=== PATIENT | male | born 1940 | race Caucasian/White ===

== ENCOUNTER 2017-06-27 16:37 | Inpatient (IN) | payer OTHER ==
--- NOTE | 2017-06-27 16:49 | EDPHY ---
H & P Time Seen by Provider: 06/27/17 16:48 HPI/ROS: Chief complaint. Chest pain HPI. 76-year-old male with history of coronary artery disease and stents presents with an episode of chest discomfort last night that lasted about 2 hr. He has a history of GERD so he did take Tums but the pain gradually faded out. He got up and went to the gym this morning and did his usual work out. He had no discomfort during the workout. Then this afternoon while driving he had again left anterior chest discomfort beginning about 3:30 p.m.. There was radiation to the right shoulder right elbow. It is described as dull. No shortness of breath. He has lightheaded. Continues to have 1/10 chest discomfort. He did take extra aspirin today. He is not sick and denies fever cough. No unusual leg pain or swelling. He had coronary artery disease with 3 stents in January 2004. ROS Constitutional. no fever/chills, no weakness Eyes. no problems with vision ENT. no sore throat, no nasal drainage Cardiovascular. Chest discomfort Respiratory. no shortness of breath, no cough Abdominal. no abdominal pain, no nausea/vomiting, no diarrhea . no problems urinating MS. no calf pain/swelling, no neck/back pain, no joint pain Skin. no rash Lymph. no swollen glands Neuro. no headache, no dizziness, no difficulty walking or with speech Past Medical/Surgical History: Coronary artery disease with stents, dyslipidemia, hypertension, GERD Social History: Single, nonsmoker, no alcohol Smoking Status: Former smoker Physical Exam: General Appearance: Alert well-developed male mild distress vital signs are stable Eyes: Pupils equal and round no pallor or injection. ENT, Mouth: Mucous membranes are moist. Respiratory: There are no retractions, lungs are clear to auscultation. Cardiovascular: Regular rate and rhythm. Gastrointestinal: Abdomen is soft and nontender, no masses, bowel sounds normal. Neurological: Awake and alert, sensory and motor exams grossly normal. Skin: Warm and dry, no rashes. Musculoskeletal: Neck is supple nontender. Extremities symmetrical, full range of motion. Psychiatric: Patient is oriented X 3, there is no agitation. Constitutional: Initial Vital Signs Temperature (C) 36.8 C 06/27/17 16:44 Heart Rate 71 06/27/17 16:44 Respiratory Rate 16 06/27/17 16:44 Blood Pressure 161/90 H 06/27/17 16:44 O2 Sat (%) 97 06/27/17 16:44 O2 Delivery Mode Room Air Allergies/Adverse Reactions: No Known Allergies Allergy (Unverified 06/27/17 16:42) Home Medications: Medication Instructions Recorded Aspirin EC [Aspirin EC 81 mg (*)] 81 mg PO DAILY 06/27/17 Atorvastatin Calcium [Lipitor 40 40 mg PO DAILY 06/27/17 mg (*)] Metoprolol Succinate Xr [Toprol Xl 50 mg PO DAILY 06/27/17 50 mg (*)] Omeprazole 40 mg PO DAILY 06/27/17 Triamcinolone 0.025% 06/27/17 Medical Decision Making - Diagnostics EKG Interpretation: EKG interpreted by me shows normal sinus rhythm with normal interval. Left axis deviation. QRS is normal there is no significant ST elevation or depression. T-wave flattening in the inferior leads. Imaging Results: Imaging Impressions Chest X-Ray 06/27/17 17:15 Impression: Negative. One-view chest x-ray interpreted by me as nonacute Procedures: IV normal saline, monitor ED Course/Re-evaluation: I consulted and discussed case with Dr. Adorno I will from cardiology who will see the patient in consultation. He agrees with Current management I consulted discussed case with Dr. Arceo, hospitalist who agrees to the admission Patient and I discussed laboratory imaging EKG results. We discussed treatment plan including recommendation for admission for further evaluation. He expresses understanding and agreement Differential Diagnosis: Chest pain in a man with known coronary artery disease and stents. I am concerned about unstable angina in reocclusion of his stents. His EKG shows inferior T-wave flattening but is otherwise nonacute his troponin is normal. Plan is admission and heart catheterization - Data Points Laboratory Results: Laboratory Results 06/27/17 17:18 06/27/17 17:18 06/27/17 06/27/17 17:18 17:18 WBC 6.36 10^3/uL 10^3/uL (3.80-9.50) RBC 4.50 10^6/uL 10^6/uL (4.40-6.38) Hgb 14.7 g/dL g/dL (13.7-17.5) Hct 45.0 % % (40.0-51.0) MCV 100.0 fL H fL (81.5-99.8) MCH 32.7 pg pg (27.9-34.1) MCHC 32.7 g/dL g/dL (32.4-36.7) RDW 13.2 % % (11.5-15.2) Plt Count 162 10^3/uL 10^3/uL (150-400) MPV 11.4 fL fL (8.7-11.7) Neut % (Auto) 66.7 % % (39.3-74.2) Lymph % (Auto) 18.9 % % (15.0-45.0) Coal % (Auto) 10.4 % % (4.5-13.0) Eos % (Auto) 3.0 % % (0.6-7.6) Baso % (Auto) 0.8 % % (0.3-1.7) Nucleat RBC Rel Count 0.0 % % (0.0-0.2) Absolute Neuts (auto) 4.25 10^3/uL 10^3/uL (1.70-6.50) Absolute Lymphs (auto) 1.20 10^3/uL 10^3/uL (1.00-3.00) Absolute Monos (auto) 0.66 10^3/uL 10^3/uL (0.30-0.80) Absolute Eos (auto) 0.19 10^3/uL 10^3/uL (0.03-0.40) Absolute Basos (auto) 0.05 10^3/uL 10^3/uL (0.02-0.10) Absolute Nucleated RBC 0.00 10^3/uL 10^3/uL (0-0.01) Immature Gran % 0.2 % % (0.0-1.1) Immature Gran # 0.01 10^3/uL 10^3/uL (0.00-0.10) Sodium 141 mEq/L mEq/L (135-145) Potassium 4.3 mEq/L mEq/L (3.5-5.2) Chloride 103 mEq/L mEq/L (97-110) Carbon Dioxide 29 mEq/l mEq/l (22-31) Anion Gap 9 mEq/L mEq/L (8-16) BUN 17 mg/dL mg/dL (7-23) Creatinine 0.9 mg/dL mg/dL (0.7-1.3) Estimated GFR > 60 Glucose 76 mg/dL mg/dL (70-100) Calcium 9.4 mg/dL mg/dL (8.5-10.4) Troponin I < 0.012 ng/mL ng/mL (0.000-0.034) NT-Pro-B Natriuret Pep 248 pg/mL pg/mL (0-450) Lipase 60 IU/L IU/L (23-300) Departure - Departure Disposition: [facility] Inpatient Acute Clinical Impression: Chest pain Qualifiers: Chest pain type: unspecified Qualified Code(s): R07.9 - Chest pain, unspecified Condition: Good Referrals: Patient,NotPresent [Unknown] - As per Instructions
--- NOTE | 2017-06-27 17:20 | CPEKG ---
Heart Rate: 63 RR Interval: 952 P-R Interval: 204 QRSD Interval: 82 QT Interval: 408 QTC Interval: 418 P [place]: -8 QRS [place]: -18 T Wave [place]: 9 EKG Severity - BORDERLINE ECG - EKG Impression: SINUS RHYTHM EKG Impression: BORDERLINE LEFT AXIS DEVIATION EKG Impression: BORDERLINE T ABNORMALITIES, INFERIOR LEADS Electronically Signed By: Daniele Matthew 27-Jun-2017 23:55:00
[2017-06-27 17:30] LABS: PLATELET COUNT 162 10^3/uL (150-400)
[2017-06-27] MEDS ORDERED: ONDANSETRON 4 MG/2 ML VIAL IVP PRN (19:55)
[2017-06-27] MEDS ORDERED: ONDANSETRON DISINTEGRATING 4 MG TAB PO PRN (19:55)
[2017-06-27] MEDS ORDERED: ACETAMINOPHEN 325 MG TAB PO PRN (19:55)
--- NOTE | 2017-06-27 20:51 | GHP ---
[f rep st] HISTORY AND PHYSICAL DATE OF ADMISSION: 06/27/2017 CHIEF COMPLAINT: Chest pain. HISTORY OF PRESENT ILLNESS: The patient is a 76-year-old man with a history significant for heart di sease. He had 3 stents placed in 2003. Additionally, he has dyslipidemia and hypertension. He come s in after noting some chest pain Tuesday night in bed. He initially woke up because he had to urinat e and then he noted the chest pain on the left side of his chest. He thought it was reflux, so took a couple Tums and felt it ease and went back to sleep. He got up this morning and worked out in his club. He thought he may have had a little bit of elbow discomfort during the workout, but it was min imal and resolved soon after. He then went to play bridge and sometime during the mid day, he noted some right shoulder and arm discomfort again that he attributed to some bursitis. After going to the office for elections to sign up, he was driving home and he noted the chest pain on his left side ca me back and this time it was associated with right arm pain, so he drove to Urgent Care, who promptly sent him over to the ER for further evaluation and treatment. Currently his pain is improved. He d enies any shortness of breath, diaphoresis, or any other associated symptoms. He has had no fevers, chills, weight changes. He denies any abdominal complaints currently. No nausea, vomiting, diarrhea . He does have urinary frequency with at least nocturia x3. No leg pain or calf pain. REVIEW OF SYSTEMS: A 10-point review of systems was done, was negative except as stated in HPI. PAST MEDICAL HISTORY: 1. BPH. 2. Heart disease, status post stents. 3. Dyslipidemia. 4. Hypertension. 5. Obstructive sleep apnea. 6. Esophageal reflux. MEDICATIONS: Include aspirin, atorvastatin, metoprolol, omeprazole, and ProAir. Please see med rec for full details. ALLERGIES: No known drug allergies. SOCIAL HISTORY: He is . He works as a financial advisor trainee. He quit smoking and drinks 1-2 dr inks per day. FAMILY HISTORY: Parents are . PHYSICAL EXAM: VITAL SIGNS: Afebrile, heart rate 68, blood pressure 150/83, respirations 16, he is 96% on room air. GENERAL: He is a very pleasant 76-year-old. He is in no distress. He is alert an d oriented. HEENT: Pupils equal. Extraocular movements intact. Mucous membranes moist. Oropharynx clear. NECK: Supple. No adenopathy. No carotid bruits. HEART: Regular rate and rhythm. No mur mur, gallop, or rub. LUNGS: Clear to auscultation. No wheeze, rhonchi, or rales. ABDOMEN: Soft. No masses. Normal bowel sounds. EXTREMITIES: No clubbing, cyanosis, or edema. MUSCULOSKELETAL: No joint deformities. SKIN: Intact, no rash. NEUROLOGIC: He moves all 4 extremities. Speech is f luent. He is alert and oriented. PSYCH: He has a normal mood. LABORATORY DATA: CBC is within normal limits. Chemistries and electrolytes are normal. The initial troponin is negative. DIAGNOSTICS: Electrocardiogram shows sinus rhythm with some borderline T-wave flattening in III and aVF with a Q-wave in III. No acute ischemia noted. It is personally reviewed and interpreted. Ches t x-ray personally reviewed and interpreted shows no acute disease. ASSESSMENT AND PLAN: 1. 76-year-old with a history of heart disease, remote stents in 2003, presents with chest pain. Th is is nonexertional in nature, but similar to his anginal pain he had prior to the stents. This was discussed with Dr. Adams, who talked with Dr. Steinberg, who plans on doing an angiogram in the morning g iven his previous stent history. Plan will be to admit him for observation. Continue to keep him pa in-free. Will send serial troponins and repeat an EKG in the morning. Will keep him nothing by mout h after midnight and have Cardiology see him and decide on further evaluation at that time. 2. Hypertension, slightly elevated. Will continue to monitor and treat as needed. 3. Dyslipidemia. Continue statin. 4. Benign prostatic hypertrophy. Monitor. /[id number]/MODL
[2017-06-27] MEDS: amLODIPine BESYLATE 5 MG TAB PO SCH (22:10)
--- NOTE | 2017-06-27 23:32 | GCON ---
[f rep st] CONSULTATION CARDIOLOGY CONSULTATION DATE OF CONSULTATION: 06/27/2017 REASON FOR CONSULTATION: Chest pain. REQUESTING PHYSICIAN: Dr. Matthew from [facility] Emergency Department. HISTORY OF PRESENT ILLNESS: The patient is a pleasant 76-year-old gentleman with a known history of coronary artery disease with history of PCI to the right coronary artery in 2003 performed in [place], [place]; hypertension; hyperlipidemia; and a history of acid reflux; who was in his usual state of he alth until approximately 11 p.m. last night when he developed onset of left-sided, dull chest discomf ort which he described as 1/10 and at highest 4/10 discomfort that was associated with right shoulder and right elbow pain. He states he took 2 Tums and gradually felt better. He states when he woke i n the morning, he had minimal pain of around 1/10. He was able to go to the gym and perform his regu lar exercise routine of weightlifting and life cycle for 15 minutes. He denied any associated exerti onal chest pain, chest pressure, shortness of breath or dyspnea. No associated nausea, vomiting, or diaphoresis. He denies any associated exertional intolerance or fatigue. He states he is able to pe rform his work out per his usual routine. He exercises at the gym between 4 and 5 days a week. He does state that symptoms that he had experienced last evening were similar to those prior to his s tent to the right coronary artery. He states that this afternoon, he was driving home at around 3:30 when again, he developed left-sided dull chest discomfort up to 4/10, lasting for up to an hour and resolving spontaneously with right s houlder and right elbow pain. This prompted him to seek medical attention at the [facility], who called EMS and brought him to [facility] for further evaluation. In the emergenc y room, he was found to be hypertensive with systolic blood pressure of 172/91, heart rate of 65, res piratory rate of 18, oxygen saturation 100% on room air. ECG demonstrated sinus rhythm. Initial tro ponin was negative. He did not receive nitroglycerin. He had ongoing 1/10 chest discomfort. Currently, at the time of my exam, he is resting comfortably. He appears in no distress. He does describe a 0.5/10 left-sided chest discomfort. PAST MEDICAL HISTORY: 1. Coronary artery disease with PCI to the RCA in 2003 in [place]. 2. Hypertension. 3. Hyperlipidemia. 4. GERD. 5. Obstructive sleep apnea. MEDICATIONS ON ADMISSION: Toprol-XL 50 mg once daily, atorvastatin 40 mg daily and aspirin 81 mg tomas ly. ALLERGIES: To medications, none. SOCIAL HISTORY: He is . He lives alone. He is a former smoker, smoked for approximately 31 years. He is retired. He exercises 4 to 5 times per week. PHYSICAL EXAMINATION: VITAL SIGNS: As stated above. GENERAL: He is awake, alert, oriented, appropriate. No apparent distress. He is pleasant. NECK: There is no evidence of JVP or carotid bruits. LUNGS: Clear to auscultation bilaterally. CARDIAC: S1, S2. Regular rate and rhythm. No murmurs, rubs, or gallops. His PMI is not displaced. ABDOMEN: Soft, nontender, nondistended. There are normoactive bowel sounds bowel sounds. EXTREMITIES: There is no evidence of cyanosis, clubbing or edema. DATA: White blood cell count is 6.36, hemoglobin of 14.7, hematocrit 45, and platelets 102. Sodium 141, potassium 4.3, chloride 103, bicarb 29, BUN 17, creatinine 0.9, glucose 76. Troponin less than 0.012. BNP 248. Lipase is normal at 60. Chest x-ray demonstrates no evidence of pneumonia. No cardiomegaly. Chest x-ray is unremarkable. ECG today from 1643 demonstrates normal sinus rhythm with normal intervals. Left axis deviation. No rmal R-wave progression. Normal QT interval. Flattening of T-waves in the inferior leads. Previous ECG from September 10, 2016, is essentially unchanged compared to today's study. IMPRESSION: 1. Atypical chest discomfort with radiation to the right shoulder and elbow. 2. May represent anginal equivalent as these are similar symptoms to those prior to his percutaneous coronary intervention in 2003. 3. History of coronary artery disease. 4. Hypertension. 5. Hyperlipidemia. 6. Gastroesophageal reflux disease. 7. Obstructive sleep apnea. SUMMARY: The patient is a pleasant 76-year-old gentleman with known coronary artery disease who pres ents with almost 24 hours of intermittent, nonexertional, left-sided 4/10, dull chest discomfort with no exacerbating or alleviating factors, with radiation to the right shoulder and elbow; which are si milar to those symptoms prior to his PCI in 2003. His initial workup was unremarkable. His ECG is u nchanged compared to study in September of 2016. Troponin is negative. He is currently resting comfortab ly. I do not see any indication for him to be taken to the sleep lab technologist urgently at this time. Telemetry dem onstrates sinus rhythm with no arrhythmias. PLAN: 1. Check serial troponins through the course of the night. 2. Recommend the addition of amlodipine for improved blood pressure control. 3. N.p.o. after midnight. 4. Full-dose aspirin. 5. We will reassess in the morning with plan most likely for left heart catheterization to be perfor med. I have answered all of the patient's questions. /[id number]/MODL
--- NOTE | 2017-06-28 08:50 | CPEKG ---
Heart Rate: 54 RR Interval: 1111 P-R Interval: 204 QRSD Interval: 78 QT Interval: 436 QTC Interval: 414 P [place]: 14 QRS [place]: -14 T Wave [place]: 19 EKG Severity - NORMAL ECG - EKG Impression: SINUS RHYTHM Electronically Signed By: Price Castellano 28-Jun-2017 09:31:30
[2017-06-28] MEDS ORDERED: NITROGLYCERIN 0.4 MG BTL SL PRN (08:52)
[2017-06-28] MEDS: ATORVASTATIN CALCIUM 40 MG TAB PO SCH (09:45)
[2017-06-28] MEDS: amLODIPine BESYLATE 5 MG TAB PO SCH (09:45)
[2017-06-28] MEDS: PANTOPRAZOLE SODIUM 40 MG TAB PO SCH (09:45)
[2017-06-28] MEDS: ASPIRIN 325 MG TAB PO SCH ×2 (09:45→12:34)
[2017-06-28] MEDS: METOPROLOL SUCCINATE XR 50 MG TAB PO SCH (09:57)
[2017-06-28] MEDS ORDERED: FAMOTIDINE 20 MG TAB PO ONE (11:10)
[2017-06-28] MEDS ORDERED: DIAZEPAM 5 MG TAB PO ONE (11:10)
[2017-06-28] MEDS ORDERED: TEMAZEPAM 15 MG CAP PO PRN (11:10)
[2017-06-28] MEDS ORDERED: diphenhydrAMINE 25 MG CAP PO ONE (11:10)
--- NOTE | 2017-06-28 11:13 | PDCARPN ---
Cardiology Progress Note Chief Complaint: No active cardiovascular symptoms at present Assessment/Plan: Assessment: Patient is a 76 y/o male with history of CAD s/p PCI (RCA, 2003), HTN, and HLP, who presents to [facility] after noting a second bout of chest discomfort while driving. First episode was noted late Tuesday night/early Tuesday morning. Exercise on Tuesday without juarez symptoms noted. While driving yesterday, symptoms returned, and there was similarity to that which was noted prior to PCI of the RCA in the past. Last stress testing with [facility] was " several years ago". Good compliance with both statins and beta blockers. No symptoms have been noted today, but symptoms correlate with "unstable angina". No cardiac biomarker elevation has been noted, and no dynamic ST/T wave changes noted. Discussion about ETT/MPI versus cardiac cath, and patient wanting to pursue angiography. Risks and benefits were discussed with the patient, and consents have been signed. Plan: (1) Left heart catheterization this morning (2) Further recommendations after procedure has been completed. Subjective: Patient is currently without CV symptoms. Reviewed/Discussed With: hospitalist Objective: Vital Signs (8 Hrs) Temp Pulse Resp BP Pulse Ox 06/28/17 07:13 36.7 C 57 L 14 131/73 H 98 06/28/17 04:00 36.7 C 57 L 19 133/74 H 99 Intake/Output (24 Hrs) 06/27/17 06/28/17 06/29/17 05:59 05:59 05:59 Intake Total 200 Balance 200 Intake: Oral (ml) 200 IV Intake (ml) 0 Other: Weight 86.1 kg Number of Voids Toilet 2 Result Diagrams: 06/27/17 17:18 06/27/17 17:18 Cardiac Labs: Cardiac Lab Results (72 Hrs) 06/28/17 06/27/17 06:08 23:54 Troponin I < 0.012 < 0.012 Telemetry: sinus rhythm - Physical Exam Constitutional: WDWN, healthy appearing, no apparent distress Eyes: PERRL, EOMI Ears, Nose, Mouth, Throat: moist mucous membranes Cardiovascular: regular rate and rhythm, no murmurs, no rubs, no gallops, pulses symmetric bilat, No jugular vein distention Peripheral Pulses: 2+: dorsalis-pedis (R), dorsalis-pedis (L) Respiratory: clear to auscultate bilat, no crackles, no wheezes Gastrointestinal: normoactive bowel sounds, no tenderness Skin: no rashes, no edema Musculoskeletal: no muscular tenderness Neurologic: AAOx3, CN II-XII grossly intact Psychiatric: cooperative, interactive, following commands ICD10 Worksheet Patient Problems: Problems Problem Status Onset Chest pain Acute
[2017-06-28] MEDS ORDERED: NS 1,000 ML IV SCH (11:15)
--- NOTE | 2017-06-28 11:16 | PDPROPOC ---
Sedation Plan of Care Sedation Plan of Care: vital signs stable, mental status noted, patient educated of risks, benefits, alternatives, patient can tolerate sedation ASA Classification: ASA 2 Planned drugs: fentanyl, midazolam Mallampati Score: Class 2 Mallampati Reference Image: Patient passed 3-3-2 rule?: Yes
[2017-06-28] MEDS ORDERED: fentaNYL 100 MCG/2 ML INJ ONE ×2 (11:43→12:38)
[2017-06-28] MEDS ORDERED: MIDAZOLAM 2 MG/2 ML VIAL ONE ×2 (11:43→12:38)
[2017-06-28] MEDS ORDERED: LIDOCAINE 1% 300 MG/30 ML SDV ONE (11:43)
[2017-06-28] MEDS ORDERED: IOPAMIDOL (ISOVUE-370) 150 ML BTL IV ONE (11:44)
[2017-06-28] MEDS ORDERED: METOPROLOL TARTRATE 5 MG/5 ML INJ ONE (12:32)
[2017-06-28] MEDS ORDERED: BIVALIRUDIN 250 MG/5 ML VIAL IV ONE (12:47)
--- NOTE | 2017-06-28 12:58 | PDDXCAT ---
Diagnostic Cath Note - . Date: 06/28/17 Cement Gun Operator: Gray Indication: CCC Class III and IV angina on medical treatment - Procedure Access: right groin Procedure: left heart catheterization, coronary angiography, left ventriculogram - Materials Left Heart Cath size: 6F Left Heart Cath materials: standard multipack (JL4, JR4, pigtail) - Findings-Left Heart Catheterization LM: Medium to large diameter vessel with trifurcation into the LAD, LCX, and ramus vessels. No luminal irregularities were noted. LAD: Medium diameter vessel with a principal diagonal in the more proximal section of the LAD. The proximal portion of the diagonal, just proximal to prior stent, has an 80% stenosis noted. In the LAD, just distal to the Diag take off, there is luminal irregularity of 30% (hazy). LAD extends to the apex. Tortuosity consistent with HTN history. LCX: Smallish vessel with either a very high OM1 or ramus. No critical CAD was noted to the LCX system. RCA: Large, dominant vessel with a proximal, patent stent (10% luminal irregularity noted to the stented segment). Distal supply to the PDA. Just proximal to the PDA take off there is a 20% luminal irregularity noted. Ramus: Very small, diminuative vessel with ostial/proximal disease (40%). The vessel is not a large caliber, but does supply a lengthy region of anterior myocardium. EDP: 20 mm Hg LVEF: 60% Wall motion: grossly normal. There is concern based on the LV gram that there may be a cyst to the pericardium given the manner with which the heart is shifted. Complications: none Estimated blood loss: <50ml Assessment: 76 y/o male with known PCI to both RCA and D1 in the remote past. Unstable angina as symptom (no stress testing given very similar symptoms to that which was noted in past prior to intervention). Critical D1 lesion, proximal to prior stent. Normal LVEF. Plan: Dr. Khadra Avila to perform PCI to ostial/proximal 80% lesion to large D1 Intervention: D1 lesion Patient Problems: Problems Problem Status Onset Chest pain Acute
--- NOTE | 2017-06-28 13:12 | PDDXCAT ---
Diagnostic Cath Note - . Date: 06/28/17 Party Supply Specialist: Austin Indication: CCC Class III and IV angina on medical treatment (THE PATIENT HAS UNSTABLE ANGINA) - Procedure Access: right groin Procedure: other (PCI) - Materials Left Heart Cath size: 6F (JL4 CORDIS GUIDING CATHETER) - Findings-Left Heart Catheterization LAD: Medium diameter vessel with a principal diagonal in the more proximal section of the LAD. The proximal portion of the diagonal, just proximal to prior stent, has an 80% stenosis. In the LAD, just distal to the diagonal take off, there is luminal irregularity of 30% (hazy). LAD extends to the apex. Tortuosity consistent with HTN history. Complications: NONE. Estimated blood loss: <50ml Closure method: TR Band Assessment: Dr. Toledo performed diagnostic catheterization on the patient. The patient was found to have an 80% stenosis proximal to his prior stent in the proximal portion of the diagonal. This was ultimately stented. BRIELLE III flow pre and post stent implantation. Plan: Dual antiplatelet therapy with Aspirin 325mg for the first month followed by Aspirin 81mg along with Plavix 75mg daily should be continued for at least 1 year following drug eluting stent implantation. No elective surgery for the first 3 months. Decisions to stop dual antiplatelet therapy before 1 year should involve our office [facility], . Intervention: A 6 Amharic JL4 guiding catheter was used for guide catheter support. A 0.014" Wiggle Wire was advanced across the lesion in question under direct fluoroscopic and angiographic guidance. An Emerge 2.5 x 12 mm balloon was used to pre dilate the lesion. Maximal pressure was 10 KHANH. The 80% lesion of the diagonal was then secondarily stented with a Synergy 2.5 x 12 mm Drug Eluting Stent. There was 0% residual stenosis. There was BRIELLE III flow pre and post stent implantation. The patient tolerated the procedure well and will return to the post cath recovery unit in good and stable condition. Patient Problems: Problems Problem Status Onset Chest pain Acute
[2017-06-28] MEDS ORDERED: CLOPIDOGREL BISULFATE 75 MG TAB ONE (13:17)
[2017-06-28] MEDS ORDERED: ATROPINE SULFATE 1 MG/10 ML SYR IVP PRN (14:18)
--- NOTE | 2017-06-28 14:22 | ASMTCMCOM ---
CM Note CM Note Notes: 76yr old male admitted for CP. He has a Hx of BPH, Hrt dis s/p stents, Dyslipidemia, HTN, KAUR, Esophageal reflux, and no longer smoking. 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 Therapies have not evaluated as yet. May not have needs. Date Signed: 06/28/2017 02:22 PM Electronically Signed By:Constance Hyde LCSW
--- NOTE | 2017-06-28 14:49 | HOSPPROG ---
Hospitalist Progress Note Assessment/Plan: #CAD: cath showed 80% stenosis proximal to prior stent in Diagonal -dual antiplatelet with Plavix and ASA 325mg, then 81mg thereafter. Statin, BB -monitor overnight for arrhythmia #HTN: cont home meds #GERD: PPI #HLD: statin #KAUR #Diet: cardiac #Disp: warrants inpatient admission for telemetry. Can DC in morning if clinically stable Subjective: mild chest pressure this morning without radiation Objective: Vital Signs Temp Pulse Resp BP Pulse Ox 36.7 C 60 14 150/86 H 92 06/28/17 11:38 06/28/17 11:38 06/28/17 11:38 06/28/17 11:38 06/28/17 11:38 06/27/17 06/28/17 06/29/17 05:59 05:59 05:59 Intake Total 200 Balance 200 ICD10 Worksheet Patient Problems: Problems Problem Status Onset Chest pain Acute
--- NOTE | 2017-06-28 14:58 | CPEKG ---
Heart Rate: 55 RR Interval: 1091 P-R Interval: 188 QRSD Interval: 78 QT Interval: 432 QTC Interval: 414 P [place]: 20 QRS [place]: -16 T Wave [place]: 21 EKG Severity - OTHERWISE NORMAL ECG - EKG Impression: SINUS RHYTHM EKG Impression: BORDERLINE LEFT AXIS DEVIATION Electronically Signed By: Price Castellano 28-Jun-2017 17:23:37
--- NOTE | 2017-06-28 15:52 | PDMN ---
Medical Necessity Medical necessity: M40 angina with intervention -min. exertion, progressive-: "unstable angina": [facility] with stent placed. 80% stenosis found proximal to prior stent of diagonal. telemetry monitoring ovn needed. > 2 midnights ongoing med nec care.
[2017-06-28 16:42] LABS: PLATELET COUNT 145 10^3/uL (150-400)
--- NOTE | 2017-06-28 16:56 | ECHO ---
[email or web address] [address] [address] Main: [phone] Fax: Transthoracic Echocardiogram Name: ISIDORO NEAL MR#: [id number] Study Date: 06/28/2017 Study Time: 02:17 PM Date of : 1940 Age: 76 year(s) Height: 185.4 cm (73 in.) Weight: 85.73 kg (189 lb.) BSA: 2.1 m2 Gender: Male Examination: Echo Indication: Question pericardial cyst given orientation of heart with LV gram on cath Image Quality: Contrast: Requested by: Isidoro Castellano BP: 144 mmHg/80 mmHg Heart Rate: Rhythm: Indication: Question pericardial cyst given orientation of heart with LV gram on cath Procedure Staff Veterans' Counselor: Armida Sy RD Reading Physician: Isidoro Castellano MD Requesting Provider: Conclusions: Normal size left ventricle. Borderline concentric LV hypertrophy. Normal global systolic LV function. The ejection fraction is estimated to be 65-70 %. Normal size right ventricle. Trivial mitral valve regurgitation. Mild aortic valve regurgitation is present. The tricuspid valve is normal in appearance and function. Pulmonary valve not well visualized. No extracardiac structure visualized in the area of the LV.. Measurements: Chambers Valvular Assessment AV/MV Valvular Assessment TV/PV Normal Normal Normal Name Value Range Name Value Range Name Value Range LVDd (2D): 4.5 cm (4.2 cm-5.9 MV E Vmax: 0.50 m/s ( - ) cm) MV A Vmax: 0.64 m/s ( - ) EF Range: 65-70 % MV E/A: 0.78 ( - ) Continued Measurements: Chambers Valvular Assessment AV/MV Name Value Name Value LADs Lon.1 cm MV E' Septal: 0.06 m/s LA Area: 14.6 cm2 MV E/E' Septal: 8.80 MV E/E' Lateral: 7.90 Patient: ISIDORO NEAL Study Date: 06/28/2017 Page 1 of 2 02:17 PM Findings: Left Ventricle: Normal size left ventricle. Borderline concentric LV hypertrophy. Normal global systolic LV function. The ejection fraction is estimated to be 65-70 %. No regional wall motion abnormality. Right Ventricle: Normal size right ventricle. Left Atrium: The left atrium is normal in size. Right Atrium: The right atrium is normal in size. Mitral Valve: The mitral valve is normal in appearance and function. Trivial mitral valve regurgitation. Aortic Valve: The aortic valve is normal in appearance and function. Mild aortic valve regurgitation is present. Tricuspid Valve: The tricuspid valve is normal in appearance and function. Pulmonic Valve: Pulmonary valve not well visualized. Aorta: The aorta is normal. Pericardium: No pericardial effusion. Exam Comments: No extracardiac structure visualized in the area of the LV.. (No Signature Object) Patient: ISIDORO NEAL Study Date: 06/28/2017 Page 2 of 2 02:17 PM [id number]
[2017-06-28 17:10] LABS: INR 1.26 (0.83-1.16)
[2017-06-28] MEDS: FLUTICASONE NASAL 120 SPRAYS/16 GM MDI EACHNARE SCH ×2 (19:00→20:44)
[2017-06-28] MEDS: MULTIVITAMINS 1 EACH TAB PO SCH (19:00)
[2017-06-29] MEDS ORDERED: CLOPIDOGREL BISULFATE 75 MG TAB PO SCH (09:00)
[2017-06-29] MEDS: amLODIPine BESYLATE 5 MG TAB PO SCH (09:17)
[2017-06-29] MEDS: PANTOPRAZOLE SODIUM 40 MG TAB PO SCH (09:17)
[2017-06-29] MEDS: ATORVASTATIN CALCIUM 40 MG TAB PO SCH (09:18)
[2017-06-29] MEDS: MULTIVITAMINS 1 EACH TAB PO SCH (09:18)
[2017-06-29] MEDS: METOPROLOL SUCCINATE XR 50 MG TAB PO SCH (09:18)
[2017-06-29] MEDS: ASPIRIN 325 MG TAB PO SCH (09:18)
[2017-06-29] MEDS: FLUTICASONE NASAL 120 SPRAYS/16 GM MDI EACHNARE SCH (09:19)
[2017-06-29 11:28] VITALS: BP 127/66
--- NOTE | 2017-06-29 13:21 | PDCARPN ---
Cardiology Progress Note Chief Complaint: No cardiovascular complaints today. Slept well overnight Assessment/Plan: Assessment: 06-29-17 Patient doing well today. No cardiovascular complaints. No chest pains or pressure. Mild groin pains noted, but patient has been ambulating without juarez limitations. Chest pains that had been noted upon arrival are no longer noted. Yesterday's angiogram with critical proximal first diagonal lesion ( just prior to previously stented region). 06-28-17 Patient is a 76 y/o male with history of CAD s/p PCI (RCA, 2003), HTN, and HLP, who presents to [facility] after noting a second bout of chest discomfort while driving. First episode was noted late Tuesday night/early Tuesday morning. Exercise on Tuesday without juarez symptoms noted. While driving yesterday, symptoms returned, and there was similarity to that which was noted prior to PCI of the RCA in the past. Last stress testing with Fever was " several years ago". Good compliance with both statins and beta blockers. No symptoms have been noted today, but symptoms correlate with "unstable angina". No cardiac biomarker elevation has been noted, and no dynamic ST/T wave changes noted. Discussion about ETT/MPI versus cardiac cath, and patient wanting to pursue angiography. Risks and benefits were discussed with the patient, and consents have been signed. Plan: (1) Would continue therapy on ASA and Plavix given the newly stented D1 (2) Toprol and Norvasc should continue for HTN (3) Statins should continue for HLP history with continue annual assessment of cholesterol and LFTs (4) Would get the patient started with cardiac rehab (they have been by to see the patient today) (5) Would have the patient seen by cardiology in one week (6) Patient was in agreement with these plans. Subjective: No cardiovascular complaints today Reviewed/Discussed With: family, hospitalist Objective: Vital Signs (8 Hrs) Temp Pulse Resp BP Pulse Ox 06/29/17 11:28 36.9 C 58 L 16 127/66 H 93 06/29/17 08:00 36.7 C 68 15 146/68 H 92 Intake/Output (24 Hrs) 06/28/17 06/29/17 06/30/17 05:59 05:59 05:59 Intake Total 200 300 Output Total 350 Balance 200 -50 Intake: Oral (ml) 200 300 IV Intake (ml) 0 0 Output: Urine (ml) 350 Toilet 350 Other: Weight 86.1 kg Number of Voids Toilet 2 3 Number of Stools Toilet 1 Result Diagrams: 06/28/17 16:36 06/28/17 16:36 Cardiac Labs: Cardiac Lab Results (72 Hrs) 06/28/17 06/28/17 06/27/17 16:36 06:08 23:54 Troponin I < 0.012 < 0.012 < 0.012 Telemetry: normal sinus rhythm - Physical Exam Constitutional: WDWN, healthy appearing, no apparent distress Eyes: PERRL, EOMI Ears, Nose, Mouth, Throat: moist mucous membranes Cardiovascular: regular rate and rhythm, no murmurs, no rubs, no gallops Peripheral Pulses: 2+: dorsalis-pedis (R), dorsalis-pedis (L) Respiratory: clear to auscultate bilat, no crackles, no wheezes Gastrointestinal: normoactive bowel sounds Skin: no rashes, no edema Musculoskeletal: no muscular tenderness Neurologic: AAOx3, CN II-XII grossly intact Psychiatric: cooperative, interactive, following commands ICD10 Worksheet Patient Problems: Problems Problem Status Onset Chest pain Acute
--- NOTE | 2017-06-29 14:20 | GDS ---
[f rep st] DISCHARGE SUMMARY DISCHARGE DIAGNOSES: 1. Coronary artery disease with percutaneous coronary intervention to right coronary artery in 2003. 2. Hypertension. 3. Hyperlipidemia. 4. Acute proximal diagonal lesion stented with drug-eluting stent. 5. Gastroesophageal reflux disease. HISTORY OF PRESENT ILLNESS: A 76-year-old male with history of CAD, with RCA stent in 2003, hypertension, hyperlipidemia, presented to [facility] after having a second episode of chest discomfort while driving. First episode noted late Tuesday night. He exercised Tuesday without any symptoms. He was driving yesterday and developed chest pain that was similar to when needing prior PCI. The patient underwent cardiac cath, and it showed a proximal first lesion, diagonal lesion just proximal to his previously stented region. HOSPITAL COURSE BY PROBLEM: 1. Acute diagonal stenosis, status post drug-eluting stent. The patient underwent catheterization, which showed 80% stenosis proximal to his prior stent. Drug-eluting stent was placed. He will be on dual antiplatelet therapy with Plavix and aspirin 325 for 1 month and then down to 81 mg thereafter. Continue statin and beta brian. He will start cardiac rehab and follow up with Cardiology in 1 week. 2. Hypertension. Was started on Norvasc. Will resume this. 3. GERD. Will change to ranitidine as can have interactions with Plavix. Patient is agreeable to this. 4. Hyperlipidemia, statin. 5. KAUR, stable on room air. DISPOSITION: Patient is stable for discharge home. MEDICATIONS: New: 1. Plavix 75 mg daily. 2. Aspirin 325 mg daily for 1 month, then 81 after. 3. Ranitidine 150 mg b.i.d. 4. Norvasc 5 mg daily. 5. Nitroglycerin 0.4 mg sublingual p.r.n. chest pain. FOLLOWUP: 1. Dr. Castellano, with Cardiology. 2. Primary care physician. PHYSICAL EXAMINATION: VITAL SIGNS: Today, temperature 36.9, blood pressure 127 /66, heart rates in the 50s to 60s, respirations 16, 93% on room air. GENERAL: Well appearing, smiling, sitting up in bed, no acute distress. HEENT: PERRLA. EOMI. Oropharynx clear. CV: Regular rate and rhythm. No murmurs, gallops, or rubs. LUNGS: Clear. ABDOMEN: Soft, nontender, nondistended. Positive bowel sounds. : No Pascal. MUSCULOSKELETAL: Right groin site with palpable pulse. No hematoma. PSYCH: Alert and oriented x3. Time spent on discharge >30 min discussing counseling on new medications, coordinating FU with Cardiology. Discussed with Dr. Castellano. /[id number]/MODL MTDLisa
--- NOTE | 2017-06-29 15:38 | ASDISCHSUM ---
Discharge Information Plan Status:Home with No Needs Medically Cleared to Leave:06/29/2017 Discharge Date:06/29/2017 02:30 PM CM D/C Disposition:Home, Routine, Self-Care ADT D/C Disposition:Home, Routine, Self-Care Projected Discharge Date:06/29/2017 02:30 PM Transportation at D/C: Discharge Delay Reason: Follow-Up Date:06/29/2017 02:30 PM Discharge Slot: Final Diagnosis: Placement Information Patient Contact Information Contact Name:JACK Relationship:Son Address:[address] Work Phone: City:[place] Alternate Phone: [facility]/Zip Code:[place] [address] Email: Financial Information Financial Class:Medicare Advantage Plans Primary Plan Desc:[employer] MEDICARE ADV Primary Plan Number:[id number] Secondary Plan Desc: Secondary Plan Number: Assessment Information LACE LACE Length of stay for Answers: 1 day current admission Acuity / Level of Answers: No Care: Did the patient have an inpatient admission? Comorbidities - select Answers: Coronary Artery Disease all that apply Other Notes: HTN, GERD # of Emergency department Answers: 1-2 visits in the last 6 months Score: 5 Date Signed: 06/29/2017 03:36 PM Electronically Signed By:Jacklyn Reyes RN [facility] JUL[facility] Progress Note CM Note CM Note Notes: 76yr old male admitted for CP. He has a Hx of BPH, Hrt dis s/p stents, Dyslipidemia, HTN, KAUR, Esophageal reflux, and no longer smoking. Patient to go to the process laboratory specialist today. Therapies have not evaluated as yet. May not have needs. Date Signed: 06/28/2017 02:22 PM Electronically Signed By:Constance Hyde LCSW Intervention Information Intervention Type:*MÁRQUEZ-Signed Date of Service:06/28/2017 10:39 AM Patient Type:Observation Staff Member:Radha Hyde Hours: Discipline: Severity: Comment:
== END 2017-06-29 14:30 | disposition home or self-care (01) | DRG 247 ==
LOC: EDUNIT# → INTOOBSV 18:56 → OBSVTOIN 18:56 → F2W 19:48
PROVIDERS: ADMIT Internal Medicine; ATTEND Internal Medicine
PROC: 027034Z Dilation of Coronary Artery, One Artery with Drug-eluting Intraluminal Device, Percutaneous Approach (ICD-10-PCS; principal; 2017-06-28)
PROC: B2151ZZ Fluoroscopy of Left Heart using Low Osmolar Contrast (ICD-10-PCS; 2017-06-28)
PROC: B2111ZZ Fluoroscopy of Multiple Coronary Arteries using Low Osmolar Contrast (ICD-10-PCS; 2017-06-28)
PROC: 4A023N7 Measurement of Cardiac Sampling and Pressure, Left Heart, Percutaneous Approach (ICD-10-PCS; 2017-06-28)
DX: I25.110 Atherosclerotic heart disease of native coronary artery with unstable angina pectoris (principal); I10 Essential (primary) hypertension; Z95.5 Presence of coronary angioplasty implant and graft; E78.5 Hyperlipidemia, unspecified; K21.9 Gastro-esophageal reflux disease without esophagitis; G47.33 Obstructive sleep apnea (adult) (pediatric); N40.0 Benign prostatic hyperplasia without lower urinary tract symptoms
CPT/HCPCS: C1725; C1760; C1769; C1874; C1887; C9600; G0378; J0583; J1644; J2250; J3010; Q9967

== ENCOUNTER 2017-07-28 17:13 | Observation (INO) | payer OTHER ==
--- NOTE | 2017-07-28 17:19 | EDPHY ---
H & P Time Seen by Provider: 07/28/17 17:19 HPI/ROS: CHIEF COMPLAINT: Chest pain HISTORY OF PRESENT ILLNESS: Patient has a history of coronary stenting in 2003 and then again last month. He presents with symptoms which she describes as pain"inside my chest"on the left side starting at around 11:30 a.m.. Started when he was about to play a game of bridge which he subsequently lost according to his friend. Patient took 6 antacids with no change. It radiated across both sides of his chest was associated with feeling lightheaded. Not better worse with deep breath or exertion. He did not take nitroglycerin. No cough or fever or shortness of breath. He did work out 25 min on a stationary bike ending at 11:00 a.m. REVIEW OF SYSTEMS: Eye: no change in vision ENT: no sore throat Cardiac: HPI Pulmonary: no cough or SOB Abdomen: no vomiting, diarrhea, abdominal pain Musculoskeletal: No leg swelling Skin: no rash Neuro: no headache Constitutional: no fever : no urinary symptoms A comprehensive 10 point review of systems is otherwise negative aside from elements mentioned in the history of present illness. PAST MEDICAL HISTORY: Discharge summary dated 06/29/2017 personally reviewed includes coronary artery disease with PCI to the RCA in 2003 and PCI to the acute diagonal in this hospitalization, hypertension, hyperlipidemia, GERD Social history: Nonsmoker General Appearance: Alert and conversant, cooperative. Eyes: No scleral icterus. ENT, Mouth: Normal mucous membranes. Respiratory: Normal respiratory effort, breath sounds equal, lungs are clear to auscultation. Cardiovascular: Regular rate and rhythm. No murmurs. Gastrointestinal: Abdomen is soft and non tender. Neurological: Alert, face symmetric, normal motor and sensory in extremities. Skin: Not diaphoretic. Musculoskeletal: No peripheral edema. Psychiatric: Not agitated. Emergency Department course/MDM: Patient presents with chest pain which is currently resolved, but presents in the context of previous coronary disease with stenting. Plan for chest x-ray and labs to include troponin followed by cardiology consultation. 1822: Patient took oral aspirin today 325 mg so none given in the emergency department. He is agreeable to admission for serial troponins and cardiology consultation, as recommended by Dr. Castellano. Smoking Status: Former smoker Constitutional: Initial Vital Signs Temperature (C) 36.7 C 07/28/17 17:13 Heart Rate 70 07/28/17 17:13 Respiratory Rate 18 07/28/17 17:13 Blood Pressure 166/74 H 07/28/17 17:13 O2 Sat (%) 100 07/28/17 17:13 O2 Delivery Mode Room Air Allergies/Adverse Reactions: No Known Allergies Allergy (Verified 07/28/17 17:13) Home Medications: Medication Instructions Recorded Atorvastatin Calcium [Lipitor 40 40 mg PO DAILY 06/27/17 mg (*)] Budesonide [Rhinocort Allergy] 1 spray EACHNARE DAILY 06/27/17 Metoprolol Succinate Xr [Toprol Xl 50 mg PO DAILY 06/27/17 50 mg (*)] Multivitamins [Multivitamin (*)] 1 each PO DAILY 06/27/17 Aspirin [Aspirin 325 mg (*)] 325 mg PO DAILY #30 tab 06/29/17 Clopidogrel Bisulfate [Plavix (*)] 75 mg PO DAILY #30 tab 06/29/17 Nitroglycerin [Nitrostat 0.4 mg 0.4 mg SL Q5M PRN #30 btl 06/29/17 (*)] Ranitidine HCl [Acid Breaker Boss] 150 mg PO BID #60 tablet 06/29/17 amLODIPine BESYLATE [Norvasc 5 mg 5 mg PO DAILY #30 tab 06/29/17 (*)] Medical Decision Making - Diagnostics EKG Interpretation: 12-lead EKG interpreted by me; official reading is in trace master. My interpretation is sinus rhythm with left axis rate [address] elevation or depression. Imaging Results: Imaging Impressions Chest X-Ray 07/28/17 17:31 Impression: No acute findings in the chest. Imaging: I viewed and interpreted images myself Differential Diagnosis: Differential diagnosis considered for chest pain including but not limited to myocardial ischemia, aortic dissection, pericarditis, pulmonary embolus, chest wall pain, pleural inflammation and pulmonary infectious causes. Consult/Admit Bed Type: [place] [id number] admit hosp; [place] [id number] - Data Points Laboratory Results: Laboratory Results 07/28/17 17:28 07/28/17 17:28 07/28/17 07/28/17 17:28 17:28 WBC 10.63 10^3/uL H 10^3/uL (3.80-9.50) RBC 4.65 10^6/uL 10^6/uL (4.40-6.38) Hgb 15.3 g/dL g/dL (13.7-17.5) Hct 46.5 % % (40.0-51.0) MCV 100.0 fL H fL (81.5-99.8) MCH 32.9 pg pg (27.9-34.1) MCHC 32.9 g/dL g/dL (32.4-36.7) RDW 13.1 % % (11.5-15.2) Plt Count 174 10^3/uL 10^3/uL (150-400) MPV 10.7 fL fL (8.7-11.7) Neut % (Auto) 80.1 % H % (39.3-74.2) Lymph % (Auto) 12.9 % L % (15.0-45.0) [place] % (Auto) 5.8 % % (4.5-13.0) Eos % (Auto) 0.5 % L % (0.6-7.6) Baso % (Auto) 0.4 % % (0.3-1.7) Nucleat RBC Rel Count 0.0 % % (0.0-0.2) Absolute Neuts (auto) 8.52 10^3/uL H 10^3/uL (1.70-6.50) Absolute Lymphs (auto) 1.37 10^3/uL 10^3/uL (1.00-3.00) Absolute Monos (auto) 0.62 10^3/uL 10^3/uL (0.30-0.80) Absolute Eos (auto) 0.05 10^3/uL 10^3/uL (0.03-0.40) Absolute Basos (auto) 0.04 10^3/uL 10^3/uL (0.02-0.10) Absolute Nucleated RBC 0.00 10^3/uL 10^3/uL (0-0.01) Immature Gran % 0.3 % % (0.0-1.1) Immature Gran # 0.03 10^3/uL 10^3/uL (0.00-0.10) Sodium 143 mEq/L mEq/L (135-145) Potassium 4.1 mEq/L mEq/L (3.3-5.0) Chloride 104 mEq/L mEq/L (97-110) Carbon Dioxide 28 mEq/l mEq/l (22-31) Anion Gap 11 mEq/L mEq/L (8-16) BUN 25 mg/dL H mg/dL (7-23) Creatinine 0.9 mg/dL mg/dL (0.7-1.3) Estimated GFR > 60 Glucose 92 mg/dL mg/dL (70-100) Calcium 10.0 mg/dL mg/dL (8.5-10.4) Troponin I < 0.012 ng/mL ng/mL (0.000-0.034) Departure - Departure Disposition: [facility] Inpatient Acute Clinical Impression: Chest pain Qualifiers: Chest pain type: unspecified Qualified Code(s): R07.9 - Chest pain, unspecified Condition: Good
--- NOTE | 2017-07-28 17:25 | CPEKG ---
Heart Rate: 72 RR Interval: 833 P-R Interval: 176 QRSD Interval: 84 QT Interval: 376 QTC Interval: 412 P [place]: 11 QRS [place]: -20 T Wave [place]: 26 EKG Severity - OTHERWISE NORMAL ECG - EKG Impression: SINUS RHYTHM EKG Impression: BORDERLINE LEFT AXIS DEVIATION Electronically Signed By: Shalom Chambers 28-Jul-2017 17:33:24
[2017-07-28 17:36] LABS: PLATELET COUNT 174 10^3/uL (150-400)
[2017-07-28] MEDS ORDERED: ONDANSETRON DISINTEGRATING 4 MG TAB PO PRN (18:19)
[2017-07-28] MEDS ORDERED: ONDANSETRON 4 MG/2 ML VIAL IVP PRN (18:19)
[2017-07-28] MEDS ORDERED: ACETAMINOPHEN 325 MG TAB PO PRN (18:19)
[2017-07-28] MEDS ORDERED: NITROGLYCERIN 0.4 MG BTL SL PRN (18:50)
--- NOTE | 2017-07-28 19:35 | GHP ---
[f rep st] HISTORY AND PHYSICAL DATE OF ADMISSION: 07/28/2017 CHIEF COMPLAINT: Chest pain. PRIMARY SALES ACCOUNT REPRESENTATIVE: Dr. Steinberg. HISTORY OF PRESENT ILLNESS: A pleasant 76-year-old male with history of coronary disease who had a c ardiac cath on 06/28 that showed 80% stenosis proximal to its prior stent in the proximal portion of the diagonal. It was stented with a drug-eluting stent. He has been compliant with his dual-antipla telet therapy and other medications. He has undergone cardiac rehab. He does report chest pain on and off daily when walking in for rehab . He says it only lasts minutes. Today he was playing bridge and about 12:30 developed left-sided c hest pain that was thumping in nature, 2/10 pain. Had dizziness with it. No nausea, vomiting, radia tion, numbness or tingling. Denies pillow orthopnea or lower extremity edema or shortness of breath. No trauma to the chest. He took several antacids thinking it was GERD with minimal improvement of his pain today. REVIEW OF SYSTEMS: I completed a 10-point review of systems, negative except as noted in HPI. PAST MEDICAL HISTORY: 1. Coronary disease with 3 stents placed in 2003 and then a recent drug-eluting stent in June. Ech ocardiogram: EF 65%-70%. Mild aortic regurgitation. 2. BPH. 3. Dyslipidemia. 4. Hypertension. 5. KAUR. 6. GERD. PAST SURGICAL HISTORY: He had several derm surgeries, a tonsillectomy. SOCIAL HISTORY: Lives in [place]. He is . Works as a financial systems administrator. He quit smoking 30 years ago but had a 30-year pack history. Drinks wine daily. Father had an NH at age 46, a stro ke in his 60s. Paternal grandfather had NH at age 43. ALLERGIES: No known drug allergies. HOME MEDICATIONS: 1. Norvasc 5 mg daily. 2. Nitroglycerin, which he has not been taking. 3. Multivitamin. 4. Toprol 50 mg daily. 5. Plavix 75 mg daily. 6. Rhinocort Allergy each naris daily. 7. Lipitor 40. 8. Aspirin 325. PHYSICAL EXAMINATION: VITALS: Temperature 36, blood pressure 139/65, heart rates in the 60s, respir ations 16, 99% on room air. GENERAL: Well appearance, in bed, in no acute distress. HEENT: PERRLA . EOMI. Moist mucous membranes. CV: Regular rate and rhythm. No reproducible chest pain. No duke a. LUNGS: Clear. GI: Soft, nontender, nondistended. Positive bowel sounds. ; No Pascal. [facility] uloskeletal: Upper and lower extremity strength 5/5. NEUROLOGIC: II-XII intact. PSYCHIATRIC: Risa rt and oriented x3. LABORATORIES: WBC is 10, hemoglobin 15, hematocrit 46, platelets 174. Sodium 143, potassium 4.1, ch loride 104, BUN is 25, creatinine 0.9, glucose 92, calcium 10. Troponin less than 0.012. Lipids, 06/28/2017: LDL 79, HDL 57. EKG is personally reviewed by me: Normal sinus rhythm, Q wave in leads III and AVF. No ST elevation or depression. Chest x-ray personally reviewed by me: No opacity, effusion or edema. ASSESSMENT AND PLAN: 1. Acute chest pain: Differential is gastroesophageal reflux disease, musculoskeletal, acute tobar ry syndrome. He had a recent drug-eluting stent to D1. He has been compliant with his dual-antiplat elet medication. We will admit to PCU on telemetry. Provide IV morphine and nitroglycerin as needed . He will be kept n.p.o. in case of cardiac cath tomorrow. Cardiology will consult. 2. Coronary artery disease: History of 3 stents in 2003, a drug-eluting stent in June this month. Continue beta brian, statin, aspirin. 3. Gastroesophageal reflux disease. Nexium. 4. Hyperlipidemia. Statin. DIET: Cardiac n.p.o. after midnight. DISPOSITION: Patient warrants observation, admission given. Acute chest pain warranting telemetry, possible cardiac cath. /[id number]/MODL
[2017-07-29] MEDS ORDERED: FINASTERIDE 5 MG TAB PO SCH (09:00)
[2017-07-29] MEDS ORDERED: ATORVASTATIN CALCIUM 40 MG TAB PO SCH (09:00)
[2017-07-29] MEDS ORDERED: METOPROLOL SUCCINATE XR 50 MG TAB PO SCH (09:00)
[2017-07-29] MEDS ORDERED: MULTIVITAMINS 1 EACH TAB PO SCH (09:00)
[2017-07-29] MEDS ORDERED: PANTOPRAZOLE SODIUM 40 MG TAB PO SCH (09:00)
[2017-07-29] MEDS ORDERED: amLODIPine BESYLATE 5 MG TAB PO SCH (09:00)
[2017-07-29] MEDS ORDERED: CLOPIDOGREL BISULFATE 75 MG TAB PO SCH (09:00)
[2017-07-29] MEDS ORDERED: FLUTICASONE NASAL 120 SPRAYS/16 GM MDI EACHNARE SCH (09:00)
[2017-07-29] MEDS: ASPIRIN 325 MG TAB PO SCH ×2 (10:34→10:40)
--- NOTE | 2017-07-29 13:17 | ASMTCASEMG ---
Living Arrangements What is your living Answers: Alone arrangement? Who do you live with? Type Of Residence What kind of residence do Answers: House you live in? Discharge Plan Comments Coordination Status Comments Notes: Pt is a 76 y/o man admitted for chest pain. Pt will most likely d/c independent when medically stable. No therapies ordered at this time. CM available for changes. Plan: Independent Date Signed: 07/29/2017 01:16 PM Electronically Signed By:CIERA Ramirez
[2017-07-29] MEDS ORDERED: diphenhydrAMINE 25 MG CAP PO ONE (13:45)
[2017-07-29] MEDS ORDERED: fentaNYL 100 MCG/2 ML INJ ONE (13:45)
[2017-07-29] MEDS ORDERED: MIDAZOLAM 2 MG/2 ML VIAL ONE (13:45)
[2017-07-29] MEDS ORDERED: DIAZEPAM 5 MG TAB PO ONE (13:45)
[2017-07-29] MEDS ORDERED: FAMOTIDINE 20 MG TAB PO ONE (13:45)
[2017-07-29] MEDS ORDERED: LIDOCAINE 1% 300 MG/30 ML SDV ONE (13:45)
[2017-07-29] MEDS ORDERED: TEMAZEPAM 15 MG CAP PO PRN (13:45)
[2017-07-29] MEDS ORDERED: NS 1,000 ML IV SCH (13:45)
[2017-07-29] MEDS ORDERED: VERAPAMIL 5 MG/2 ML VIAL ONE (13:46)
[2017-07-29] MEDS ORDERED: HEPARIN 10,000 UNIT/10 ML MDV (1,000 UNIT/ML) ONE (13:46)
[2017-07-29] MEDS ORDERED: IOPAMIDOL (ISOVUE-370) 150 ML BTL IV ONE (13:46)
--- NOTE | 2017-07-29 13:51 | PDCARCONS ---
Cardiology Consult Reason for Consult: Chest pain Chief Complaint: Chest pain Requesting Physician: Yrn History of Present Illness: 76-year-old male well known to me history of coronary artery disease, status post PCI of a small diagonal July 02 returns today with recurrence of similar symptoms. He has 1st event in 2003. At that time he received 3 stents. This has been complicated by intermittent reflux. In late June he had an episode of what he thought was reflux. He went to the hospital. He ruled out for cardiac injury by enzymes. He was taken the cardiac catheterization lab where he was found to have a stenosis prior to old stent and received another angioplasty. He has done well for about 4 weeks. Today he was driving when he developed the acute onset of mid epigastric burning type pain. Did not radiate to the jaw. Did not radiate to the arm. It was not associated with shortness of breath nausea vomiting or diaphoresis. He came to the emergency department. Initial troponin was unremarkable. Initial EKG showed no changes. He is admitted to the hospital. On my arrival he has continued to have 4/10 discomfort. He denies PND orthopnea. He has had no palpitations syncope or near syncope. History Information - Allergies/Home Medication List Allergies/Adverse Reactions: No Known Allergies Allergy (Verified 07/28/17 17:13) Home Medications: Atorvastatin Calcium [Lipitor 40 mg (*)] 40 mg PO DAILY 06/27/17 [Last Taken ] Metoprolol Succinate Xr [Toprol Xl 50 mg (*)] 50 mg PO DAILY 06/27/17 [Last Taken 06/27/17] Multivitamins [Multivitamin (*)] 1 each PO DAILY 06/27/17 [Last Taken 06/27/17] Esomeprazole Magnesium [Nexium] 20 mg PO DAILY 07/28/17 [Last Taken Unknown] Finasteride [Proscar 5 MG (*)] 5 mg PO DAILY 07/28/17 [Last Taken 07/28/17] Fluticasone Nasal [Flonase Nasal [place] (RX)] 1 sprays NASAL DAILY 07/28/17 [ Last Taken Unknown] Prednisolone Sod Phosphate [Prednisolone Sodium Phosphate] 10 mg PO BID [Last Taken 07/28/17] Tamsulosin HCl [Flomax 0.4 MG (*)] 0.4 mg PO DAILY 07/28/17 [Last Taken 07/28/17 ] I have personally reviewed and updated: family history, medical history, social history, surgical history Past Medical History: - Past Medical History coronary artery disease, hypertension, hyperlipidemia - Surgical History Reports: no pertinent surgical hx, coronary stent - Family History Positive for: non-pertinent - Social History Smoking Status: Former smoker Cardiac History - Cardiac History Cardiac Risk Factors: hypertension (>140/90), lipidemia, age > 65 Severity Scale: 4 Location: epigastric Physical Exam Physical Exam: Temp Pulse Resp BP Pulse Ox 36.4 C 54 L 16 130/80 H 96 07/29/17 11:26 07/29/17 11:26 07/29/17 11:26 07/29/17 11:26 07/29/17 11:26 O2 (L/minute) 2 Constitutional: no apparent distress, appears nourished Eyes: PERRL Ears, Nose, Mouth, Throat: moist mucous membranes Cardiovascular: regular rate and rhythym, no murmur, rub, or gallop, JVD, No systolic murmur Peripheral Pulses: 2+: carotid (R), carotid (L), femoral (R), femoral (L), dorsalis-pedis (R), dorsalis-pedis (L) Respiratory: no respiratory distress Gastrointestinal: normoactive bowel sounds, soft, non-tender abdomen Genitourinary: no bladder fullness Skin: warm, normal color Musculoskeletal: full muscle strength Neurologic: AAOx3, No facial droop Psychiatric: interacting appropriately Lymph, Heme, Immunologic: no cervical LAD, no supraclavicular LAD Lab and Imaging 07/28/17 17:28 07/28/17 17:28 WBC 10.63 10^3/uL (3.80-9.50) H 07/28/17 17:28 RBC 4.65 10^6/uL (4.40-6.38) 07/28/17 17:28 Hgb 15.3 g/dL (13.7-17.5) 07/28/17 17:28 Hct 46.5 % (40.0-51.0) 07/28/17 17:28 MCV 100.0 fL (81.5-99.8) H 07/28/17 17:28 MCH 32.9 pg (27.9-34.1) 07/28/17 17:28 MCHC 32.9 g/dL (32.4-36.7) 07/28/17 17:28 RDW 13.1 % (11.5-15.2) 07/28/17 17:28 Plt Count 174 10^3/uL (150-400) 07/28/17 17:28 MPV 10.7 fL (8.7-11.7) 07/28/17 17:28 Neut % (Auto) 80.1 % (39.3-74.2) H 07/28/17 17:28 Lymph % (Auto) 12.9 % (15.0-45.0) L 07/28/17 17: [place] % (Auto) 5.8 % (4.5-13.0) 07/28/17 17: Eos % (Auto) 0.5 % (0.6-7.6) L 07/28/17 17: Baso % (Auto) 0.4 % (0.3-1.7) 07/28/17 17: Nucleat RBC Rel Count 0.0 % (0.0-0.2) 07/28/17 17: Absolute Neuts (auto) 8.52 10^3/uL (1.70-6.50) H 07/28/17 17:28 Absolute Lymphs (auto) 1.37 10^3/uL (1.00-3.00) 07/28/17 17: Absolute Monos (auto) 0.62 10^3/uL (0.30-0.80) 07/28/17 17: Absolute Eos (auto) 0.05 10^3/uL (0.03-0.40) 07/28/17 17: Absolute Basos (auto) 0.04 10^3/uL (0.02-0.10) 07/28/17 17: Absolute Nucleated RBC 0.00 10^3/uL (0-0.01) 07/28/17 17: Immature Gran % 0.3 % (0.0-1.1) 07/28/17 17:28 Immature Gran # 0.03 10^3/uL (0.00-0.10) 07/28/17 17:28 Sodium 143 mEq/L (135-145) 07/28/17 17:28 Potassium 4.1 mEq/L (3.3-5.0) 07/28/17 17: Chloride 104 mEq/L (97-110) 07/28/17: Carbon Dioxide 28 mEq/l (22-31) 07/28/17 17: Anion Gap 11 mEq/L (8-16) 07/28/17: BUN 25 mg/dL (7-23) H 07/28/17 17: Creatinine 0.9 mg/dL (0.7-1.3) 07/28/17 17: Estimated GFR > 60 07/28/17 17: Glucose 92 mg/dL (70-100) 07/28/17: Calcium 10.0 mg/dL (8.5-10.4) 07/28/17 17: Troponin I < 0.012 ng/mL (0.000-0.034) 07/28/17 22:58 A/P Assessment: Recurrent mid epigastric pain which has been associated with progression of coronary artery disease and stenting. Ongoing discomfort for of 10 despite negative cardiac enzymes stable EKG would recommend diagnostic angiogram for complete diagnosis. His recent stent was also not associated with significant EKG changes. He is on good medical therapy for secondary prevention. Risks and benefits of a diagnostic angiogram were discussed will proceed. Plan: Left heart catheterization coronary ventricular angiography.
--- NOTE | 2017-07-29 13:54 | PDPROPOC ---
Sedation Plan of Care Sedation Plan of Care: vital signs stable, mental status noted, patient educated of risks, benefits, alternatives, patient can tolerate sedation ASA Classification: ASA 2 Planned drugs: fentanyl, midazolam Mallampati Score: Class 1 Mallampati Reference Image: Patient passed 3-3-2 rule?: Yes
--- NOTE | 2017-07-29 14:22 | CPEKG ---
Heart Rate: 61 RR Interval: 984 P-R Interval: 180 QRSD Interval: 82 QT Interval: 420 QTC Interval: 423 P [place]: -1 QRS [place]: -15 T [place]: 10 EKG Severity - BORDERLINE ECG - EKG Impression: SINUS RHYTHM EKG Impression: BORDERLINE LEFT AXIS DEVIATION EKG Impression: BORDERLINE T ABNORMALITIES, INFERIOR LEADS Electronically Signed By: Yosef Page 01-Aug-2017 10:22:19
--- NOTE | 2017-07-29 14:53 | HOSPPROG ---
Hospitalist Progress Note Assessment/Plan: #Chest pain #coronary artery disease #HTN #HLD #sinus bradycardia Plan: -Cards to see to determine need for cath -thus far trops x 2 negative -cont all other -May need decrease of Toprol given Bradycardia, Cards to recommend Subjective: no further chest pain. no n/v Objective: Vital Signs Temp Pulse Resp BP Pulse Ox 36.4 C 54 L 16 130/80 H 96 07/29/17 11:26 07/29/17 11:26 07/29/17 11:26 07/29/17 11:26 07/29/17 11:26 07/28/17 07/29/17 07/30/17 05:59 05:59 05:59 Intake Total 100 Output Total 950 Balance -850 - Physical Exam Constitutional: no apparent distress Eyes: PERRL, EOMI Ears, Nose, Mouth, Throat: moist mucous membranes, hearing normal Cardiovascular: regular rate and rhythym, No edema Respiratory: no respiratory distress, no rales or rhonchi, clear to auscultation Gastrointestinal: normoactive bowel sounds, soft, non-tender abdomen Skin: warm Musculoskeletal: No generalized weakness Neurologic: AAOx3 Psychiatric: interacting appropriately, not anxious, not encephalopathic Lymph, Heme, Immunologic: No petechiae ICD10 Worksheet Patient Problems: Problems Problem Status Onset Chest pain Acute
--- NOTE | 2017-07-29 15:31 | PDDXCAT ---
Diagnostic Cath Note - . Date: 07/29/17 Laboratory Monitor: Donaldo - Procedure Access: right wrist Procedure: left heart catheterization, coronary angiography - Materials Left Heart Cath size: 5F Left Heart Cath materials: pigtail, other ([place] 4) - Findings-Left Heart Catheterization LM: Unobstructed LAD: Unobstructed, widely patent site of prior stenting in the diagonal LCX: Unobstructed RCA: Unobstructed Ramus: Unobstructed, widely patent stent EDP: 12 mm of mercury Complications: None Estimated blood loss: <50ml Closure method: TR Band Assessment: Non cardiac chest pain. Widely patent site of prior stenting with no new focal stenosis. Normal left ventricular filling pressures. Plan: Patient can be discharged home from a cardiovascular point of view. Increased GERD treatment to dual therapy with PPI and H2 brian. Patient Problems: Problems Problem Status Onset Chest pain Acute
--- NOTE | 2017-07-29 16:00 | PDDCSUM ---
Discharge Summary Discharge Summary: 76 yo male with hx of CAD and recent Cath on 06/28 admitted with CP. Cards consulted. Cath performed and unremarkable. CP felt to be from [facility] and Pepcid started. Cards has cleared the pt for discharge. He will f/u with Dr. Steinberg for routine f/u. DDX: #Chest pain #coronary artery disease #HTN #HLD #sinus bradycardia #GERD, cont PPI, started Pepcid as well. Exam: Please see PN from today Meds: see med rec f/u: per above total time spent on d/c is 32 mins
--- NOTE | 2017-07-29 16:12 | ASMTLACE ---
LACE Length of stay for Answers: Less than 1 day current admission Comorbidities - select Answers: Coronary Artery Disease all that apply Other Notes: HTN; GERD # of Emergency department Answers: 1-2 visits in the last 6 months Score: 4 Date Signed: 07/29/2017 04:11 PM Electronically Signed By:Jacklyn Reyes RN
[2017-07-29 17:08] VITALS: BP 146/81
[2017-07-29] MEDS ORDERED: FAMOTIDINE 20 MG TAB PO SCH (21:00)
[2017-07-29] MEDS ORDERED: RANITIDINE HCL 150 MG/10 ML UDCUP PO SCH (21:00)
== END 2017-07-29 18:29 | disposition home or self-care (01) ==
LOC: F2W 19:28
PROVIDERS: ADMIT Internal Medicine; ATTEND Internal Medicine
PROC: 4A023N7 Measurement of Cardiac Sampling and Pressure, Left Heart, Percutaneous Approach (ICD-10-PCS; principal; 2017-07-28)
PROC: B2151ZZ Fluoroscopy of Left Heart using Low Osmolar Contrast (ICD-10-PCS; principal; 2017-07-28)
PROC: B2111ZZ Fluoroscopy of Multiple Coronary Arteries using Low Osmolar Contrast (ICD-10-PCS; principal; 2017-07-28)
DX: R07.9 Chest pain, unspecified (principal); I25.10 Atherosclerotic heart disease of native coronary artery without angina pectoris; I10 Essential (primary) hypertension; E78.5 Hyperlipidemia, unspecified; R00.1 Bradycardia, unspecified; K21.9 Gastro-esophageal reflux disease without esophagitis; Z87.891 Personal history of nicotine dependence
CPT/HCPCS: 71046; 93005; 93458; 99285; C1769; G0378; J1644; J2250; J3010; Q9967